=== PATIENT | female | born 1990 | race Caucasian/White ===

== ENCOUNTER 2018-06-03 08:59 | Day surgery (SDC) | payer OTHER ==
[~2018-06-03 08:59] MED LIST: LIDOCAINE HCL 1% MPF 30 SOL ONE; PROPOFOL 500 MG/50 ML EMU IV ONE
[2018-06-03] MEDS ORDERED: FENTANYL 100MCG/2ML SOL ONE (10:53)
[2018-06-03 12:08] VITALS: BP 143/83; PULSE 61; RESP 20; TEMP 98; O2SAT 99
== END 2018-06-03 12:15 | disposition home or self-care (01) ==
LOC: SURG 08:59
PROVIDERS: ATTEND Internal Medicine Gastroenterology
DX: Z12.11 Encounter for screening for malignant neoplasm of colon (principal); R10.30 Lower abdominal pain, unspecified; K92.1 Melena; R93.3 Abnormal findings on diagnostic imaging of other parts of digestive tract; K56.699 Other intestinal obstruction unspecified as to partial versus complete obstruction; L53.8 Other specified erythematous conditions; K64.8 Other hemorrhoids; K52.9 Noninfective gastroenteritis and colitis, unspecified; K63.89 Other specified diseases of intestine
CPT/HCPCS: J3010; J2001; J2704

== ENCOUNTER 2018-08-18 10:06 | Emergency (ER) | payer OTHER ==
[2018-08-18 10:07] VITALS: O2SAT 99
[2018-08-18] MEDS ORDERED: SODIUM CHLORIDE 0.9% 1000ML 1,000 ML IV ONE (10:41)
[2018-08-18] MEDS ORDERED: HYDROMORPHONE 1 MG/ML SYRINGE IV ONE (10:43)
[2018-08-18] MEDS ORDERED: HYDROMORPHONE 1 MG/ML SYRINGE ONE (10:56)
[2018-08-18 11:01] LABS: BASOPHILS % (AUTO) 1 % (0-3); EOSINOPHILS % (AUTO) 1 % (0-9); HEMATOCRIT 49 % (35-47); HEMOGLOBIN 16.1 gm/dl (12.0-15.5); LYMPHOCYTES % (AUTO) 10.7 % (10-50); MEAN CORPUSCULAR HEMOGLOBIN 28.7 pg (27.0-32.0); MEAN CORPUSCULAR VOLUME 87 fL (81-99); MONOCYTES % (AUTO) 7.8 % (0-12); NEUTROPHILS % (AUTO) 80.2 % (37-80)
[2018-08-18 11:13] LABS: APPEARANCE,URINE Slightly Cloudy; BILIRUBIN,URINE NEGATIVE (NEGATIVE); COLOR,URINE Yellow; GLUCOSE, URINE (UA) NEGATIVE (NEGATIVE); KETONES,URINE NEGATIVE (NEGATIVE); LEUKOCYTE ESTERASE ,URINE 2+ (NEGATIVE); NITRATE,URINE NEGATIVE (NEGATIVE); OCCULT BLOOD,URINE 2+ (NEG-TRACE); UROBILINOGEN,URINE 0.2 (0.2-1.0 EU)
[2018-08-18 11:25] LABS: ALBUMIN 3.7 gm/dl (3.4-5.0); BILIRUBIN,TOTAL 0.7 mg/dl (0.2-1.0); CALCIUM 9.2 mg/dl (8.5-10.1); CARBON DIOXIDE 27.9 mEq/L (21-32); CREATININE 0.86 mg/dl (0.60-1.00); TOTAL PROTEIN 7.6 gm/dl (6.4-8.2)
[2018-08-18 11:28] LABS: BACTERIA 2+ (< 1+); CRYSTALS NEGATIVE (0-3 AVE/HPF)
[2018-08-18 11:56] VITALS: RESP 18; TEMP 97.7
[2018-08-18] MEDS ORDERED: SULFAMETHOXAZOLE/TRIMETHOPRI 800/160 MG PO ONE (11:58)
[2018-08-18] MEDS ORDERED: SULFAMETHOXAZOLE/TRIMETHOPRI 800/160 MG ONE (12:04)
[2018-08-18 13:23] VITALS: BP 117/70; PULSE 99
== END 2018-08-18 12:35 | disposition home or self-care (01) ==
LOC: ED 10:06
DX: N39.0 Urinary tract infection, site not specified (principal); R10.30 Lower abdominal pain, unspecified; R10.9 Unspecified abdominal pain
CPT/HCPCS: 36415; 80053; 81001; 85025; 87077; 87088; 87186; 96365; 96366; 96374; 99282; 99284; A9270-GY; J1170

== ENCOUNTER 2018-08-19 03:54 | Emergency (ER) | payer OTHER ==
[2018-08-19] MEDS ORDERED: PROCHLORPERAZINE EDISYLATE 5 MG/ML SOL IV ONE (04:13)
[2018-08-19 04:14] VITALS: TEMP 98.9
[2018-08-19] MEDS ORDERED: MORPHINE SULFATE 10 MG/ML SOL IV ONE (04:19)
[2018-08-19] MEDS: SODIUM CHLORIDE 0.9% 1000ML 1,000 ML IV SCH ×3 (04:20→06:32)
[2018-08-19] MEDS ORDERED: MORPHINE SULFATE 10 MG/ML SOL ONE (04:30)
[2018-08-19] MEDS ORDERED: PROCHLORPERAZINE EDISYLATE 5 MG/ML SOL ONE (04:30)
[2018-08-19 05:15] VITALS: RESP 18
[2018-08-19] MEDS ORDERED: MORPHINE SULFATE 10 MG/ML SOL IV PRN (06:11)
[2018-08-19] MEDS ORDERED: PROCHLORPERAZINE MALEATE 5 MG TAB ONE (06:33)
[2018-08-19] MEDS ORDERED: PROCHLORPERAZINE MALEATE 5 MG TAB PO ONE (06:39)
[2018-08-19] MEDS ORDERED: OXYCODONE HYDROCHLORIDE 5 MG TAB PO ONE (06:39)
[2018-08-19 06:57] VITALS: BP 109/81; PULSE 89; O2SAT 96
== END 2018-08-19 06:55 | disposition home or self-care (01) ==
LOC: ED 03:54 → UNDOADMOB 06:13 → ACUTE CARE 06:13 → UNDODISOB 06:55
DX: R10.9 Unspecified abdominal pain (principal); R11.2 Nausea with vomiting, unspecified
CPT/HCPCS: 74176; 96365; 96374; 96375; 99283; 99284; 99285; J0780; J2270; A9270-GY

== ENCOUNTER 2018-08-20 18:32 | Emergency (ER) | payer OTHER ==
[2018-08-20 18:36] VITALS: RESP 18
[2018-08-20] MEDS ORDERED: LEVOFLOXACIN 25 MG/ML 500 MG in SODIUM CHLORIDE 0.9% 100 ML 100 ML IV ONE (18:48)
[2018-08-20] MEDS ORDERED: METOCLOPRAMIDE HYDROCHLORIDE 5 MG/ML SOL IV ONE (18:49)
[2018-08-20] MEDS ORDERED: LEVOFLOXACIN 25 MG/ML SOL IV ONE (18:55)
[2018-08-20] MEDS ORDERED: METOCLOPRAMIDE HYDROCHLORIDE 5 MG/ML SOL ONE (18:55)
[2018-08-20] MEDS ORDERED: SODIUM CHLORIDE 0.9% 1000ML 1,000 ML IV SCH (19:00)
[2018-08-20] MEDS ORDERED: PROMETHAZINE HYDROCHLORIDE 25 MG/ML SOL IV ONE (20:18)
[2018-08-20] MEDS ORDERED: PROMETHAZINE HYDROCHLORIDE 25 MG/ML SOL ONE (20:21)
[2018-08-20 20:49] VITALS: BP 118/76; PULSE 78; TEMP 97.9; O2SAT 96
== END 2018-08-20 20:35 | disposition home or self-care (01) ==
LOC: ED 18:32
DX: N10 Acute pyelonephritis (principal)
CPT/HCPCS: 96365; 96374; 96375; 99282; 99284; J1956; J2550; J2765